=== PATIENT | male | born 1950 | race Caucasian/White ===

== ENCOUNTER 2016-11-28 20:24 | Emergency (ER) | payer OTHER, MEDICAID ==
[~2016-11-28] VITALS: Ht 172.7 cm; Wt 79.6 kg
[~2016-11-28 20:24] MED LIST: DICL75 PO; HYDR-3533 PO; JANU25TA PO; LEVO.2 PO; METF500 PO; ROBA750T3 PO; b/p med; cholesterol med
[2016-11-28 20:27] VITALS: BP 142/88; PULSE 91; RESP 18; TEMP 98.4; O2SAT 95
[2016-11-28] MEDS ORDERED: AZIT250T3 PO (21:05)
--- NOTE | 2016-11-28 21:05 | PD ---
HPI Chief Complaint: Cold / Flu Symptoms Time Seen by Provider: 20:37 Travel History International Travel<30 days: No Contact w/Intl Traveler<30days: No Traveled to known affect area: No History of Present Illness HPI This 66-year-old man who presents to the emergency department complaining of cough cold symptoms with congestion and ear pain and left ear ringing for the past week or so getting steadily worse. He has some productive cough. Some low -grade fevers and chills. No history of tobacco use. No shortness of breath. No chest pain. History diabetes and hypertension. No other complaints. History Past Medical History Narrative Medical Diabetes Hypertension Social History Alcohol Use: No Tobacco Use: Yes Allergies-Medications (Allergen,Severity, Reaction): Coded Allergies: Tetracycline (Verified Adverse Reaction, Intermediate, INGUINAL BLISTERS, 11/28/16) Reported Meds & Prescriptions Reported Meds & Active Scripts Active Lortab 5 mg/325 mg (Hydrocodone/Acetaminophen 5 mg/325 mg) 1 Tab 1 Tab PO Q6H PRN Diclofenac Sodium 75 Mg Tab 75 Mg PO BID PRN Robaxin-750 (Methocarbamol) 750 Mg Tab 750 Mg PO QID PRN Reported Januvia (Sitagliptin Phosphate) 25 Mg Tab 25 Mg PO DAILY Glucophage 500 mg (Metformin HCl) 500 Mg Tab 500 Mg PO DAILY [cholesterol med] [b/p med] Synthroid (Levothyroxine Sodium) 200 Mcg Tab 200 Mcg PO DAILY Review of Systems Except as stated in HPI: all other systems reviewed are Neg Physical Exam Narrative GENERAL: Well-appearing 66-year-old man, no acute distress. SKIN: Focused skin assessment warm/dry. HEAD: Atraumatic. Normocephalic. EYES: Pupils equal and round. No scleral icterus. No injection or drainage. ENT: No nasal bleeding or discharge. Mucous membranes pink and moist. Left TM is erythematous red and dull. NECK: Trachea midline. No JVD. CARDIOVASCULAR: Regular rate and rhythm. No murmur appreciated. RESPIRATORY: No accessory muscle use. Clear to auscultation. Breath sounds equal bilaterally. GASTROINTESTINAL: Abdomen soft, non-tender, nondistended. Hepatic and splenic margins not palpable. MUSCULOSKELETAL: No obvious deformities. Data Data Last Documented VS Vital Signs Date Time Temp Pulse Resp B/P Pulse Ox O2 Delivery O2 Flow Rate FiO2 11/28/16 20:27 98.4 91 18 142/88 95 MDM Medical Decision Making Medical Screen Exam Complete: Yes Emergency Medical Condition: Yes Differential Diagnosis Bronchitis, acute otitis media, pneumonia, other Narrative Course Medical decision making Well 66 old man with about a week's worth of bronchitis symptoms, possibly related pneumonia. Left TM has inflammation fluid. Recommend antibiotic treatment. Diagnosis Primary Impression: Acute bronchitis Additional Instructions: Take azithromycin as prescribed. Return to the emergency department worsening chest pain, trouble breathing, or any other new or worsening symptoms. Med/Other Pt SpecificInfo: Prescription(s) given Scripts Azithromycin 250 Mg [id number] Mg PO DAILY 4 Days Prov:Sriram Gonzalez MD 11/28/16 Disposition: 01 DISCHARGE HOME Condition: Stable Sriram Gonzalez MD Nov 28, 2016 21:05
[2016-11-28] MEDS ORDERED: AZITHROMYCIN 250 MG TAB PO ONE (21:15)
== END 2016-11-28 21:30 | disposition home or self-care (01) ==
LOC: PHED 20:24
DX: J20.9 Acute bronchitis, unspecified (principal); E11.9 Type 2 diabetes mellitus without complications; I10 Essential (primary) hypertension
CPT/HCPCS: 99283